=== PATIENT | female | born 1980 | race Caucasian/White ===

== ENCOUNTER 2021-05-13 10:24 | Outpatient (CLI) | payer OTHER, SELFPAY ==
[2021-05-14 17:34] LABS: COVID-19 RT-PCR UVMMC Result Positive (Negative)
== END 2021-05-13 10:25 | disposition home or self-care (01) ==
LOC: LBO 10:28
PROVIDERS: PCP Nurse Practitioner; Visit Provider Nurse Practitioner Family
DX: Z20.822 Contact with and (suspected) exposure to COVID-19 (principal)
CPT/HCPCS: U0003

== ENCOUNTER 2021-12-09 14:21 | Outpatient (CLI) | payer OTHER, SELFPAY ==
--- NOTE | 2021-12-09 13:45 | DI.RAD_ITS ---
Exam(s) XR KNEE LT 3V AP,LAT,CHRIS EXAM: XR KNEE LT 3V AP,LAT,CHRIS CLINICAL HISTORY: left knee pain TECHNIQUE: COMPARISON: No exams were available for comparison FINDINGS: Two views were obtained. Cartilaginous joint spaces appear fairly well maintained. There are promin ent marginal osteophytes of the patella particularly superiorly. Marginal osteophytes of trochlea al so appear to be present. Small osteophytes noted at the margins of the medial and lateral tibiofemor al joints. No other significant bony or soft tissue abnormality seen. IMPRESSION: Moderate degenerative changes as described above. RADIATION DOSE DELIVERED: Total DLP
--- NOTE | 2021-12-09 14:00 | DI.RAD_ITS ---
Exam(s) XR KNEE RT 3V AP,LAT,CHRIS EXAM: XR KNEE RT 3V AP,LAT,CHRIS CLINICAL HISTORY: right knee pain TECHNIQUE: COMPARISON: CR XR KNEE LT 3V AP,LAT,CHRIS from 12/09/2021 FINDINGS: Three views were obtained including a Merchant view of both knees.. Cartilaginous joint spaces of th e patello femoral joints are moderately narrowed laterally bilaterally. There are marginal osteophyt es and superior and inferior enthesophytes of the right patella. Mild marginal osteophytes of the me dial and lateral tibiofemoral joints noted. IMPRESSION: Degenerative changes as described above. RADIATION DOSE DELIVERED: Total DLP
== END 2021-12-09 14:22 | disposition home or self-care (01) ==
LOC: DIORS 14:22
PROVIDERS: PCP Nurse Practitioner; Referring Provider Nurse Practitioner; Visit Provider Student in an Organized Health Care Education/Training Program
DX: M16.0 Bilateral primary osteoarthritis of hip (principal)
CPT/HCPCS: 73562

== ENCOUNTER → 2021-12-11 00:43 | Outpatient (CLI) | payer OTHER, SELFPAY ==
--- NOTE | 2021-12-11 07:45 | DI.MRI_ITS ---
Exam(s) MR LOWER JOINT LT WO EXAM: MR LOWER JOINT LT WO CLINICAL HISTORY: LEFT KNEE PAIN,internal derangement,chondromalacia,m23.92,m94.262. TECHNIQUE: Multiplanar multisequence MRI was performed. COMPARISON: CR XR KNEE LT 3V AP,LAT,CHRIS from 12/09/2021 CR XR KNEE RT 3V AP,LAT,CHRIS from 12/09/2021 FINDINGS: BONES: There is no fracture or contusion pattern. Spurring is noted from the femoral condyles and pat adalberto. JOINTS: A moderate-sized joint effusion is present. Articular cartilage: Patellofemoral joint: Thinning without focal defect of the lateral facet. Medial femoral tibial joint: Thinning and irregularity extending down to the bone in the medial femo ral condyle. Minimally increased signal in the adjacent underlying marrow. Lateral femoral tibial joint: Irregular thinning extending down to bone. Normal underlying marrow s ignal TENDONS: Extensor mechanism: Unremarkable. Medial retinaculum: Unremarkable. Lateral retinaculum: Unremarkable. Popliteus: Unremarkable. MUSCLES: Unremarkable. MENISCI: The medial meniscus is unremarkable. The lateral meniscus is diminutive in the posterior ho rn. No focal tear.. SOFT TISSUES: Unremarkable. LIGAMENTS: Anterior Cruciate: Unremarkable. Posterior Cruciate: Unremarkable. Medial Collateral:Some surrounding edema but no visible focal tear. Lateral Collateral: Unremarkable. OTHER: IMPRESSION: Chondromalacia of the femoral tibial joints, greater laterally. Mild chondromalacia of the lateral p atellar facet. Diminutive posterior horn of the lateral meniscus without visible focal tear. This could be secondar y to prior surgery or degeneration. DATA REPOSITORY:
== END ==
PROVIDERS: PCP Nurse Practitioner; Visit Provider Student in an Organized Health Care Education/Training Program
DX: M94.262 Chondromalacia, left knee; M22.42 Chondromalacia patellae, left knee; M23.201 Derangement of unspecified lateral meniscus due to old tear or injury, left knee
CPT/HCPCS: 73721

== ENCOUNTER 2022-05-06 01:05 | Outpatient (CLI) | payer OTHER, SELFPAY ==
--- NOTE | 2022-05-06 10:55 | DI.MRI_ITS ---
Exam(s) MR LOWER JOINT RT WO EXAM: MR LOWER JOINT RT WO CLINICAL HISTORY: PAIN,internal derangement rt knee, m23.91 TECHNIQUE: Multiplanar multisequence MRI of the knee was performed. COMPARISON: CR XR KNEE RT 3V AP,LAT,CHRIS from 12/09/2021 MR MR LOWER JOINT LT WO from 12/11/2021 FINDINGS: EFFUSION: There is a small-moderate size joint effusion. There is no Kimball cyst in the popliteal fos sa. MARROW:There is no evidence of fracture, bone contusion, nor osteochondral defects.. There are no si gnificant osseous lesions. PATELLOFEMORAL COMPARTMENT: The quadriceps tendon is intact. The patellar ligament is intact. There is thinning of the retropatellar cartilage, most prominent over the medial and lateral facets. There is no edema in the posterior patella. However, there are marginal osteophytes in the patella evident.There is no intraosseous signal to suggest recent patellar dislocation. There are no patellar retinacular tears. CRUCIATE LIGAMENTS: The anterior cruciate ligament is intact.The posterior cruciate ligament is intac t. MEDIAL COMPARTMENT/MEDIAL MENISCUS: There is horizontal tearing in the posterior horn of the medial m eniscus inner half.The anterior horn appears intact.. There is prominent cartilage thinning over the medial femoral condyle, essentially full-thickness thi nning over the main weight-bearing surface. There is mild subarticular edema. No distinct osteochon dral defect evident. Both intra articular and marginal osteophytes noted. MEDIAL COLLATERAL LIGAMENT: Surrounding fluid but no high-grade tear of this structure. LATERAL COMPARTMENT/LATERAL MENISCUS: There is focal signal abnormality on the inferior aspect of the posterior horn consistent with small tear at this level. The anterior horn of the lateral meniscus is intact.Moderate cartilage thinning noted over the weight-bearing surface. There are both marginal and intra-articular osteophytes off the lateral femoral condyle. No subarticular bone edema nor ost eochondral defects. ILIOTIBIAL BAND: Intact LATERAL COLLATERAL LIGAMENT COMPLEX: The fibular collateral ligament is intact. The biceps femoris t endon is intact.Popliteus muscle and tendon are intact. IMPRESSION: 1. 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 Small -moderate size joint effusion. No Kimball cyst. 2. Evidence of tearing in the posterior horn of the medial meniscus and subtle evidence of tear in th e posterior horn of the lateral meniscus. No tears of the anterior horns both menisci. No meniscoca psular separation. 3. Cruciate and collateral ligaments are intact DATA REPOSITORY:
== END 2022-05-06 01:25 ==
PROVIDERS: PCP Nurse Practitioner; Visit Provider Student in an Organized Health Care Education/Training Program
DX: S83.241A Other tear of medial meniscus, current injury, right knee, initial encounter; S83.281A Other tear of lateral meniscus, current injury, right knee, initial encounter; X58.XXXA Exposure to other specified factors, initial encounter
CPT/HCPCS: 73721

== ENCOUNTER 2022-05-26 08:51 | Day surgery (SDC) | payer OTHER, SELFPAY ==
[2022-05-26] VITALS (11 sets, daily range): BP systolic 113–148; BP diastolic 66–87; PULSE 49–74; RESP 12–18; TEMP 36.3–36.8; O2SAT 96–100; BMI 36.0
[2022-05-26] MEDS: Celecoxib 200 MG CAP 400 MG PO (09:05)
[2022-05-26] MEDS: Acetaminophen 500 MG TAB 1000 MG PO (09:06)
[2022-05-26] MEDS: Lactated Ringers 1,000 ML 80 ML IV (09:49)
--- NOTE | 2022-05-26 10:02 | W.ANESPRE ---
General Info Date of Service Date Performed: 05/26/22 Height: 5 ft 4 in Weight: 95.3 kg Body Mass Index (BMI): 36.0 Surgical Procedure: Operation Date: 05/26/22 11:25 Proposed Procedure Side Surgeon p Knee Arthroscopy,Lt Partial /Lateral Menisectomy, Rt Partial/Lateral/Medial Menisectomy Bilateral Jose Juan Molina MD s Open Distal IT Band Lengthening Left Jose Juan Molina MD Meds Allergies and Home Medications Allergies Allergy/AdvReac Type Severity Reaction Status Date / Time progesterone Allergy Severe hives Verified 05/25/22 13:04 Home Medication Medication Instructions Recorded loratadine 10 mg disintegrating 10 mg PO DAILY PRN 11/29/12 tablet (Claritin RediTabs) ranitidine HCl 150 mg tablet 150 mg PO PRN PRN 11/29/12 (Zantac Maximum Strength) cetirizine 10 mg tablet (Zyrtec) 1 tab PO PRN PRN 03/07/15 norethindrone acetate 5 mg tablet 5 mg PO DAILY #90 tabs 04/10/21 Current Visit Medications: Current Medications Generic Name Dose Route Start Last Admin Trade Name Freq PRN Reason Stop Dose Admin Acetaminophen 1,000 mg 05/26/22 06:00 05/26/22 09:06 Acetaminophen 500 Mg Tab PO 05/26/22 18:00 1,000 mg PREOP JAYSHREE Administration Celecoxib 400 mg 05/26/22 06:00 05/26/22 09:05 Celecoxib 200 Mg Cap PO 05/26/22 16:00 400 mg PREOP JAYSHREE Administration Ringer's Solution 1,000 mls @ 80 mls/hr 05/26/22 06:00 05/26/22 09:49 IV 06/24/22 23:59 80 mls/hr INFUSION JAYSHREE Administration Cefazolin Sodium/Dextrose 2 gm in 50 mls @ 100 mls/hr 05/26/22 06:00 Ancef Duplex IVPB 06/24/22 23:59 PREOP JAYSHREE IV Miscellaneous Supplies 1 each 05/26/22 06:00 Iv Access IV 06/24/22 23:59 DIRECTED JAYSHREE Sodium Chloride 0 ml 05/26/22 06:00 Normal Saline Flush 10 Ml Syr IV 06/24/22 23:59 PRN PRN Sodium Chloride 0 ml 05/26/22 06:00 Normal Saline 10 Ml Vial IJ 06/24/22 23:59 DIRECTED PRN Sterile Water 0 ml 05/26/22 06:00 Water,Injection,Sterile 10 Ml Vial IJ 06/24/22 23:59 DIRECTED PRN PFSH Active Problems Active Problems: Problem Status Onset Code Sinusitis, acute J01.90 Menorrhagia N92.0 Menses, irregular N92.6 Arthritis of knee, left M17.12 Arthritis of knee, right M17.11 Cyst of right knee joint M25.861 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 Rx with H2 bud and antihistamine. Surgical History Surgical History section 2009 EP 06/19/13 [facility] H/O dilation and curettage History of surgery Exploratory surgery for Ovarian cyst Tobacco Smoking/Tobacco Use Status: Never Alcohol Alcohol Intake: current Alcohol intake frequency: a few times a month Substance Use Substance use: Never Substance use type: does not use Vital Signs and Lab Results Vital Signs Most Recent Vital Signs in EMR: Most Recent Vital Signs Temp Pulse Resp BP Pulse Ox 36.7 C 74 16 148/87 H 100 05/26/22 09:10 05/26/22 09:10 05/26/22 09:10 05/26/22 09:10 05/26/22 09:10 Lab Results Blood Type / Crossmatch: No Data to Display Complete Blood Count: No Data to Display Complete Metabolic Panel: No Data to Display Liver Function Panel: No Data to Display Coagulation Panel: No Data to Display Cardiac Panel: No Data to Display Arterial Blood Gas: No Data to Display Venous Blood Gas: No Data to Display Pancreas Panel: No Data to Display Thyroid Panel: No Data to Display Infectious Disease: No Data to Display Blood Cultures: No Data to Display Toxicology Panel: No Data to Display Panel: No Data to Display Anesthesia Assessment and Plan Anesthesia History Personal History: No History of Anesthesia Complications Family History: Other (First c section received a medication that didn't agree with her. ) Exercise Tolerance Exercise Tolerance: Metabolic Equivalents>4 Pertinent Negatives Pertinent Negatives: No Symptoms of GERD, No Major Cardiovascular Symptoms or Complaints, No Major Pulmonary Symptoms or Complaints and No History of CVA/TIA Cardiac & Pulmonary Exam Cardiac Exam: Normal S1/S2 Heart Sounds Pulmonary Exam: Clear Bilateral Breath Sounds Implantable Cardiac Device Does patient have a Pacemaker or an ICD?: No Airway Exam Known Difficult Airway: No Mallampati Class: 1 Mouth Opening: Normal (> 3cm) Thyromental Distance: Greater than 3 cm Neck Range of Motion: Full ROM Neck Circumference: Normal Teeth Condition: Normal Dentition ASA Classification ASA Score: ASA 2 Emergency Case?: No NPO Status NPO Status: NPO Clears >2 hours, Solids >8 hours Status Status: Negative HCG Anesthesia Plan Resuscitation Status: Full Code Anesthesia Technique: General Anesthesia Airway Planned: LMA Monitors Used: Standard Monitors
--- NOTE | 2022-05-26 10:34 | HPE_ITS ---
Assessment and Plan Assessment and plan (1) Internal derangement of left knee involving posterior horn of lateral meniscus: Status: Acute (2) Iliotibial band syndrome affecting left lower leg: Status: Acute (3) Complex tear of medial meniscus of right knee: Status: Acute Assessment and plan: Agustina is a 41 year old with bilateral knee meniscal tears and IT band syndrome of the left knee. Please see the previous office note for a complete detailed history. She has failed other nonopaerative treatments and desires to proceed with bilateral knee arthroscopic partial medial and lateral menisectomies with open distal IT band lengthening. I reviewed the risks of the procedure to include bleeding, infection, pain, stiffness, damage to nerves and vessels, worsening arthritis, osteonecrosis, blood clot, weakness, need for repeat procedures. Despite these risks, she elects to proceed. History of Present Illness History of Present Illness Chief Complaint: Bilateral knee pain Narrative: Agustina is a 41 year old active female with bialteral knee pain. She has had persistent pain which has limited all activities. MRI confirmed a diagnosis of bilateral meniscal tears. She also continues to have distal IT band syndrome issues. Given these findings, I recommended proceeding wiht bilateral knee arthroscopies with meniscal intervention as well as a distal IT band lengthening. She has had no sick contacts. No chest pain or shortness of breath. Review of Systems All systems reviewed & are unremarkable except as noted in HPI and below PFSH All Active Problems (Updated 05/26/22 @ 10:36 by Jose Juan Molina MD) Complex tear of medial meniscus of right knee (Acute) Sinusitis, acute (Acute) Menorrhagia (Acute) Menses, irregular (Acute) Arthritis of knee, left (Acute) Arthritis of knee, right (Acute) Cyst of right knee joint (Acute) Iliocostal friction syndrome (Acute) Internal derangement of left knee involving posterior horn of lateral meniscus (Acute) Iliotibial band syndrome affecting left lower leg (Acute) Medical History Anxiety (11/28/12) History of spontaneous [id number] 2007 SAB D+C 05/2009 LTCS 2009 SABx2 8w 2011 Ectopic Rx with MTX 2011 SAB 8w 2012 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 Rx with H2 bud and antihistamine. Surgical History section 2010 EP 06/19/13 [facility] H/O dilation and curettage History of surgery Exploratory surgery for Ovarian cyst Social History Smoking/Tobacco Use Status: Never Smoking risk assessment performed?: Yes Alcohol Intake: current Alcohol Intake frequency: a few times a month Drug use: Never Substance use type: does not use Household members: spouse, children and other Details: Justino Lakia Maru Number of Children: 2 Communication Needs: None Education Level: college current occupation: Works multimedia developer. Sexually active: Yes Current gender identity: female Do you feel safe at home: Yes Do you feel safe in your relationship?: Yes Female Reproductive History Menstrual control method: permanent sterilization (: vasectomy) Meds Allergies and Home Medications Allergies Allergy/AdvReac Type Severity Reaction Status Date / Time progesterone Allergy Severe hives Verified 05/25/22 13:04 Home Medications Medication Instructions Recorded Confirmed Type loratadine 10 mg disintegrating 10 mg PO DAILY PRN 11/29/12 05/26/22 History tablet (Claritin RediTabs) ranitidine HCl 150 mg tablet 150 mg PO PRN PRN 11/29/12 05/26/22 History (Zantac Maximum Strength) cetirizine 10 mg tablet (Zyrtec) 1 tab PO PRN PRN 03/07/15 05/26/22 History norethindrone acetate 5 mg tablet 5 mg PO DAILY #90 tabs 04/10/21 05/26/22 Rx Exam Const General: cooperative, healthy appearing, comfortable and no acute distress Resp Effort & Inspection: normal respiratory effort Auscultation: clear to auscultation bilaterally Cardio Rate: regular rate Rhythm: regular rhythm Results Last Vital Signs Temp 36.7 C 05/26/22 09:10 Pulse 74 05/26/22 09:10 Resp 16 05/26/22 09:10 BP 148/87 H 05/26/22 09:10 Pulse Ox 100 05/26/22 09:10
[2022-05-26] MEDS: ceFAZolin 2 GM/50 ML BAG IVPB (10:43)
[2022-05-26] MEDS: Bupivacaine 0.5% Pres-Free 30 ML VIAL (11:09)
[2022-05-26] MEDS: EPINEPHrine 30 MG/30 ML VIAL (11:09)
--- NOTE | 2022-05-26 11:28 | W.PM.DSUDISC ---
Date of service: 05/26/22 Time of Service: 11:28 Discharge Plan Disposition Patient Disposition: Home Condition: Good Discharge Details Reason For Visit: B/L knee arthroscopy with L IT band lengthening Attending Provider: Jose Juan Molina Primary Care Provider: Peggy Boston Home Meds and New Rx's Prescriptions: New hydrocodone-acetaminophen 5-325 mg tablet 1 tab PO Q6H PRN (Reason: pain) Qty: 12 0RF acetaminophen 500 mg tablet 1,000 mg PO TID Qty: 90 0RF ibuprofen 600 mg tablet 600 mg PO TID PRN (Reason: pain) Qty: 90 0RF Continued loratadine [Claritin RediTabs] 10 MG tablet,disintegrating 10 mg PO DAILY PRN ranitidine HCl [Zantac Maximum Strength] 150 MG tablet 150 mg PO PRN PRN norethindrone acetate 5 mg tablet 5 mg PO DAILY Qty: 90 4RF cetirizine [Zyrtec] 10 MG tablet 1 tab PO PRN PRN Discharge Instructions Additional Instructions: You may weight bear as tolerated without restriction. Stand Alone Forms: [facility] Knee Arthroscopy Referrals: Jose Juan Molina MD [ [facility]FF [facility]YSICIAN] - Equipment/Supplies: Partial Weight Bearing Crutches Activity:: Activity as Tolerated Remove Dressings/Wound Care:: 72 hours Shower/Bathe:: 72 hours Diet:: As Tolerated Discharge Orders Discharge Orders: Discharge Order (Routine); Ordered 05/26/22 Ordered By: Keith Pan DS: Diagnosis Discharge Diagnosis (1) Internal derangement of left knee involving posterior horn of lateral meniscus: Status: Acute (2) Iliotibial band syndrome affecting left lower leg: Status: Acute (3) Complex tear of medial meniscus of right knee: Status: Acute
[2022-05-26] MEDS: fentaNYL 100 MCG/2 ML VIAL IVP (12:32)
--- NOTE | 2022-05-26 12:49 | W.ANESPOSTOP ---
Postoperative Evaluation Date, Time and Location Date Performed: 05/26/22 Time Performed: 12:49 Patient Location: PACU Vital Signs Most Recent Imported Vital Signs: Most Recent Vital Signs Temp Pulse Resp BP Pulse Ox 36.5 C 64 14 126/69 98 05/26/22 12:08 05/26/22 12:13 05/26/22 12:13 05/26/22 12:13 05/26/22 12:13 Pain Score Most Recent Pain Score: Most Recent Pain Score Pain Level 4 05/26/22 12:13 Assessment Mental Status: Awake (Alert & Oriented to Patient Baseline) Airway and Respiratory Function: Patent airway with normal (patient baseline) respiratory exam Cardiovascular Function: Hemodynamically Stable Hydration Status: Adequately Hydrated Nausea & Vomiting: No Nausea or Vomiting Pain: Pain is tolerable per patient Peripheral Nerve Block: Patient did not receive a nerve block
--- NOTE | 2022-05-26 12:57 | ROE_ITS ---
Date of service: 05/26/22 Time of Service: 12:20 Operative Note Operative Note DATE OF PROCEDURE: 05/26/22 PRE-OP DIAGNOSIS: Right Knee Medial and Lateral Meniscus Tears Left Knee Lateral Meniscus Tear and Distal IT Band Syndrome POST-OP DIAGNOSIS: same PROCEDURE: Right Knee Arthroscopic Partial Medial and Lateral Menisectomy Left Knee Arthroscopic Partial Lateral Menisectomy and Open Distal IT Band Lengthening SURGEON: Jose Juan Molina ANESTHESIA TYPE: General LMA/ETT Refer to Anesthesia Record ESTIMATED BLOOD LOSS: 10 PATHOLOGY: none sent COMPLICATIONS: None Patient was transported to: PACU Patient's condition: stable Indications: I have seen Agustina in clinic for symptoms of bilateral knee pain. Diagnosis of bilateral meniscus tears and distal IT band syndrome was made. This was confirmed based on MRI and exam findings. Nonoperative measures were exhausted but disability and pain persisted. I discussed knee arthroscopy with meniscal intervention with the patient. I reviewed the risks of the procedure to include, but not limited to, bleeding, infection, pain, stiffness, damage to nerves or vessels, recurrence, blood clot. Despite these risks, the patient elected to proceed. Findings: RIGHT KNEE: A diagnostic arthroscopy was performed with the following findings: Suprapatellar Pouch: Moderate inflammatory changes, No loose bodies Medial Compartment: Complex medial meniscal tear with a loose posterior horn fragment, Intact meniscal root although with some partial fraying/tearing, Focal areas of Grade III chondromalacia of the femur, No loose bodies, peripheral osteophytes Notch: ACL and PCL were intact Lateral Compartment: Complex tearing of the posterior horn and body of the lateral meniscus, Intact meniscal root but with some fraying, Grade II chondromalacia of the tibia, No loose bodies Patellofemoral Compartment: Grade I chondromalacia, No apparent patellar maltracking LEFT KNEE: A diagnostic arthroscopy was performed with the following findings: Suprapatellar Pouch: Moderate inflammtory disease, especially in the lateral aspect and gutter, No loose bodies Medial Compartment: No tearing, Intact meniscal root, Grade I chondromalacia, No loose bodies Notch: ACL and PCL were intact Lateral Compartment: Complex tearing throughout the posterior lateral meniscus, Intact meniscal root, Grade III/IV chondromalacia of the tibia, No loose bodies Patellofemoral Compartment: Grade III/IV chondromalacia of the trochlea and Grade I of hte patella, No apparent patellar maltracking Procedure Description: Agustina was greeted in the preoperative holding area where the correct side was identified and marked. The consent was reviewed with the patient and signed. The history and physical was updated. All questions were answered. She was taken back to the operating room. The patient was placed into the supine position on the operating room table. A nonsterile tourniquet was placed high onto the leg but not used. All bony prominences were well padded. Prophylactic antibiotics in the form of Cefazolin were administered. Both legs were then prepped with Chloraprep and draped in a standard fashion with a bilateral extremity drape. A timeout to confirm correct identity, side and site, procedure, allergies, anesthesia, and medical concerns was performed. Both legs were placed into a pneumatic leg marcos, [id number]. RIGHT KNEE: Starting with the right knee, a standard lateral portal was made at the lateral border of the patella tendon in line with the inferior pole of the patella, soft spot. The skin and deep tissue was incised sharply and the blunt trochar was inserted atraumatically. A diagnostic arthroscopy was performed and the findings are listed above. The suprapatellar pouch had moderate inflammatory change. The patellofemoral articulation showed Grade I chondromalacia as well as good tracking. The lateral gutter had no loose bodies and the medial gutter had no loose bodies. The knee was brought into some valgus stress in extension to open the medial compartment. A medial portal was made, localized by a spinal needle. The portal was created with an #11 blade through skin and capsule under direct visualization avoiding any meniscal injury. A probe was then inserted into the medial compartment. The medial compartment was fully inspected. The chondral surface of the tibia showed no significant chondromalacia and the surface of the femur showed an area of grade III chondromalacia over the posterior aspect of the medial femur. The medial meniscus had a complex tear with a loose fragment of the posterior horn and body. After evaluation, the meniscus was debrided down to a stable base using a series of biters and arthroscopic kiara. It was probed afterwards to confirm that the tear had bee n removed and the meniscus was stable. The notch was then inspected which showed an intact ACL and an intact PCL. The leg was then brought into a figure of 4 position. The lateral compartment was f ully inspected with the arthroscope and a probe. The chondral surface of the lateral femur showed no significant chondromalacia. The chondral surface of the lateral tibia showed Grade II chondromalacia. The lateral meniscus had a complex tear involving majority of the horn and the body extending into the root. The root itself appeared to be intact at the periphery although some partial tearing at went into the root. After evaluation, the meniscus was debrided down to a stable base using a series of biters and arthroscopic kiara. It was probed afterwards to confirm that the tear had been removed and the meniscus was stable. Arthroscope was brought back into the suprapatellar pouch with leg in extension and was thoroughly irrigated. The wounds were then closed with a 4-0 nylon. Th e portal sites and the knee was injected with 0.5% bupivacaine. LEFT KNEE: Attention was then turned to the left knee. A standard lateral portal was made at the lateral border of the patella tendon in line with the inferior pole of the patella, soft spot. The skin and deep tissue was incised sharply and the blunt trochar was inserted atraumatically. A diagnostic arthroscopy was performed and the findings are listed above. The suprapatellar pouch had moderate inflammatory changes. The patellofemoral articulation showed significant, grade III/IV chondromalacia, of the trochlea with some milder changes of the patella but with good tracking. The lateral gutter had no loose bodies and the medial gutter had no loose bodies. The knee was brought into some valgus stress in extension to open the medial compartment. A medial portal was made, localized by a spinal needle. The portal was created with an #11 blade through skin and capsule under direct visualization avoiding any meniscal injury. A probe was then inserted into the medial compartment. The medial compartment was fully inspected. The chondral surface of the tibia showed grade I chondromalacia and the surface of the femur showed a small fissure with grade I chondromalacia. The medial meniscus had no meniscal tear. The notch was then inspected which showed an intact ACL and an intact PCL. The leg was then brought into a figure of 4 position. The lateral compartment was fully inspected with the arthroscope and a probe. The chondral surface of the lateral femur showed minimal chondromalacia. The chondral surface of the lateral tibia showed grade III/IV chondromalacia of the posterior aspect. The lateral meniscus had a complex meniscal tear. After evaluation, the meniscus was debrided down to a stable base using a series of biters and arthroscopic kiara. It was probed afterwards to confirm that the tear had been removed and the meniscus was stable. The arthroscope was brought back into the suprapatellar pouch and the leg was in full extension. The knee was thoroughly irrigated with the arthroscopic fluid on high flow and pressure. Inflow was stopped and excess fluid was removed. The wounds were closed with 4-0 Nylon. Attention was then turned to the IT band release and lengthening. A longitudinal incision was made overlying the IT band. This is taken off sharply the skin. Electrocautery was used for any bleeding of the subcutaneous tissues. The iliotibial band was identified. There is a notably tight posterior aspect to the iliotibial band. I plan to see cut in the iliotibial band which would lengthen it by about 2.5cm leaving the distal defect posterior in the proximal defect anterior. With this outlined over the IT band I then used a knife to incise the IT band and this Z-type pattern. There was a notable tight posterior component which was in communication with the posterior thigh musculature fascia. This was also released. After releasing this there is an obvious gapping of the iliotibial band by about 2.5 cm. Blunt dissection was carried along the posterior border of the iliotibial band to make sure there is no other attachments which were preventing its release. There is significant relaxation of the soft tissues in the posterior lateral aspect of the knee. I then used a #0 FiberWire to reapproximate the iliotibial band in this length and position. The sutures were then cut and the wound was thoroughly irrigated. Deep tissues were injected with 0.5% bupivacaine along with the portal sites of the knee. The wounds were dressed with Xeroform, 4x4 gauze, ABD pad, Kerlix and an DEJAH wrap. A cryo-cuff was applied. The patient tolerated the procedure well and was returned to the Same Day Surgery area in a stable condition suffering no known complication.
[2022-05-26] MEDS: HYDROcodone 5/Acetaminophen 325 TAB PO (14:10)
== END 2022-05-26 14:27 | disposition home or self-care (01) ==
PROVIDERS: PCP Nurse Practitioner; Visit Provider Student in an Organized Health Care Education/Training Program
PROC: (CPT 29870; principal; 2022-05-26 11:15)
PROC: (CPT 27340; 2022-05-26 11:15)
DX: M23.351 Other meniscus derangements, posterior horn of lateral meniscus, right knee (principal); M23.231 Derangement of other medial meniscus due to old tear or injury, right knee; M76.32 Iliotibial band syndrome, left leg; M23.262 Derangement of other lateral meniscus due to old tear or injury, left knee
CPT/HCPCS: 29880; 27025; 29881; J0690; J1100; J1885; J2405; J2704; J3010

== ENCOUNTER 2024-11-26 12:03 | Outpatient (REF) | payer OTHER, SELFPAY ==
--- NOTE | 2024-11-26 11:50 | PAPFT_PTH ---
PATIENT: Agustina Wetzel LOC: [facility] U#:[id number] AGE/SX: 43/F ROOM: RE11/26/[address]: Lucy Romero DO : 1980 BED: DIS: 11/26/2024 SPEC #: [id number] RECD: 11/26/24 13:16 STATUS: MARYBEL REQ #: [id number] EHSAN: 11/26/24 11:[address]: Lucy Romero DEPT: [facility] Cytology RECD BY: Verenice Berumen ENTERED: 11/26/24 13:16 SP TYPE: PAPFT OTHR DR: Peggy Boston Tissues: 1 - CX/ENDOCX FOR PAP SMEARS Procedures: PAP THIN PREP/UVM Screening HPV DNA PROBE Comments: [id number] (HPV 16 & 18/45)
== END 2024-11-26 12:04 | disposition home or self-care (01) ==
LOC: LBN 12:03
PROVIDERS: PCP Nurse Practitioner; Visit Provider Obstetrics & Gynecology
DX: Z11.51 Encounter for screening for human papillomavirus (HPV) (principal); Z01.419 Encounter for gynecological examination (general) (routine) without abnormal findings
CPT/HCPCS: 88142; 87624

== ENCOUNTER 2024-12-11 10:48 | Outpatient (CLI) | payer OTHER, SELFPAY ==
--- NOTE | 2024-12-11 15:15 | DI.MAMMO_ITS ---
Exam(s) MAMMO SCREENING EXAM: MAMMO SCREENING CLINICAL HISTORY: screening TECHNIQUE: Mammograms were interpreted according to the usual protocol including computer analysis with CAD system, tomosynthesis and C-view imaging. COMPARISON: No exams were available for comparison. Baseline examination. FINDINGS: The breasts are composed of scattered fibroglandular densities, Breast Density category B. No suspicious masses or suspicious microcalcifications are seen. No skin thickening or abnormal axillary lymph nodes are seen. IMPRESSION: BI-RADS Category 1, Negative mammogram Yearly screening mammography is recommended. Breast Density - Category B - There are scattered areas of fibroglandular density. Breast density Category C or D implies that the patient has dense breast tissue. Dense breast tissue can make it harder to find cancer on a mammogram. Dense breast tissue is also associated with an increased risk of breast cancer. This information about the result of the mammogram report was provided to the patient to raise their awareness. Use this report when you speak with the patient about their risks for breast cancer, which includes their family history. At that time, you may recommend additional screening tests (Ultrasound or MRI) as these tests may add significant information. A negative radiographic report should not delay biopsy if a dominant or clinically suspicious mass is present. Up to ten percent of cancers are not identified on mammography. A negative report may reinforce clinical impression. Adenosis and dense breasts may obscure an underlying neoplasm. False positive reports average 6 to 10%. Patient will receive a letter notifying them of these results.
== END 2024-12-11 11:08 ==
LOC: DI 10:49
PROVIDERS: PCP Nurse Practitioner; Visit Provider Obstetrics & Gynecology
DX: Z12.31 Encounter for screening mammogram for malignant neoplasm of breast (principal); R92.323 Mammographic fibroglandular density, bilateral breasts
CPT/HCPCS: 77063; 77067